=== PATIENT | female | born 1935 | race Caucasian/White ===

== ENCOUNTER 2017-12-05 13:27 | Emergency (ER) | payer MEDICARE, OTHER ==
[2017-12-05] MEDS ORDERED: Lidocaine 1% (PF) 30 ML VIAL ONE (13:45)
--- NOTE | 2017-12-05 14:07 | RAD ---
LEFT ELBOW 4 VIEWS: INDICATION: Posttraumatic left elbow pain. FINDINGS: There is no fracture or dislocation. Prominent soft tissues of the left elbow are present. No joint capsular distention. IMPRESSION: Soft tissue prominence of the left elbow. No underlying fracture or dislocation is seen. POS: [facility]
== END 2017-12-05 15:00 | disposition home or self-care (01) ==
LOC: ERS 13:27
DX: S51.012A Laceration without foreign body of left elbow, initial encounter (principal); Z87.891 Personal history of nicotine dependence; W01.0XXA Fall on same level from slipping, tripping and stumbling without subsequent striking against object, initial encounter
CPT/HCPCS: 12001; J2001

== ENCOUNTER 2020-05-04 18:29 | Emergency (ER) | payer MEDICARE, OTHER ==
[2020-05-04 19:17] LABS: #Lymphocytes 1.4 thou/uL (1.20-3.40); #Monocytes 0.8 thou/uL (0.11-0.59); #Neutrophils 3.5 thou/uL (1.40-6.50); %Basophils 0.2 % (0.0-1.0); %Eosinophils 0.8 % (0.0-10.0); %Lymphocytes 24.8 % (21.0-51.0); %Monocytes 13.4 % (0.0-10.0); %Neutrophils 60.8 % (42.0-75.0); Hemoglobin 13.8 g/dL (12.0-16.0); Mean Corpuscular HGB CONC 33.4 g/dL (32.0-36.0); Mean Corpuscular Hemoglobin 31.2 pg (27.0-31.0); Mean Corpuscular Volume 93.6 fL (78.0-98.0); Mean Platelet Volume 9.2 fL (7.4-10.4); Platelet Count 136 thou/uL (130-400); RBC Distribution Width 12.3 % (11.5-14.5); Red Blood Cell (RBC) Count 4.43 mill/uL (4.20-5.40); White Blood Cell (WBC) Count 5.8 thou/uL (4.8-10.8)
--- NOTE | 2020-05-04 19:24 | RAD ---
Exam: Chest one view HISTORY:Cough. Alzheimer's. Comparison: None FINDINGS: Cardiac silhouette: Normal Aorta: Elongated Pulmonary vessels: Normal Costophrenic angles: Clear LUNGS: No masses or consolidation. Pneumothorax: None Osseous abnormalities: None IMPRESSION: No acute cardiopulmonary process.
[2020-05-04 19:55] LABS: ALT (SGPT) 31 U/L (8-55); AST (SGOT) 41 U/L (5-34); Albumin 3.6 g/dL (3.4-4.8); Alkaline Phosphatase 76 U/L (40-110); Anion Gap 13 mmol/L (10-20); BUN (Urea Nitrogen) 18 mg/dL (9.8-20.1); Bilirubin, Total 0.7 mg/dL (0.2-1.2); Calc. Creatinine Clearance 0 mL/min (70-130); Calcium 8.7 mg/dL (7.8-10.44); Carbon Dioxide 24 mmol/L (23-31); Chloride 106 mmol/L (98-107); Globulin 3.3 g/dL (2.4-3.5); Glucose 111 mg/dL (83-110); Potassium 4.4 mmol/L (3.5-5.1); Protein, Total 6.9 g/dL (6.0-8.3); Sodium 139 mmol/L (136-145)
[2020-05-04] MEDS ORDERED: Acetaminophen 500 MG TAB ONE (20:01)
[2020-05-04 21:02] LABS: Bilirubin Negative (Negative); Blood, Urine Negative (Negative); Clarity Clear (Clear); Glucose, Urine (Dipstick) Normal (Negative); Ketone, Urine Negative (Negative); Leukocyte Negative Leu/uL (Negative); Nitrite Negative (Negative); Protein, Urine (Dipstick) Negative (Neg-Trace); Specific Gravity, Urine 1.022 (1.002-1.036); Urobilinogen 6 mg/dL (Less than 2); pH, Urine 6.5 (5.0-9.0)
[2020-05-05 06:33] LABS: SARS-CoV-2 MS2 Positive; SARS-CoV-2 N Gene Positive; SARS-CoV-2 S Gene Positive; SARS-CoV-2 by NAA DETECTED (NotDetected); SARS-CoV-2 orf1ab Positive
== END 2020-05-04 22:18 | disposition home or self-care (01) ==
LOC: ERS 18:29
DX: U07.1 COVID-19 (principal); E11.9 Type 2 diabetes mellitus without complications; E78.5 Hyperlipidemia, unspecified; I10 Essential (primary) hypertension; Z87.891 Personal history of nicotine dependence
CPT/HCPCS: 51701; 71045; 80053; 81003; 83605; 85025; 87040; 87086; 87804 ×2; 99284; U0003; 36415; 87635

== ENCOUNTER 2020-05-07 14:18 | Inpatient (IN) | payer MEDICARE, OTHER ==
[2020-05-07 15:05] LABS: #Eosinphils 0.1 thou/uL (0.0-0.7); #Monocytes 0.4 thou/uL (0.11-0.59); #Neutrophils 2.1 thou/uL (1.40-6.50); %Basophils 0.7 % (0.0-1.0); %Eosinophils 1.1 % (0.0-10.0); %Lymphocytes 43.5 % (21.0-51.0); %Neutrophils 46.7 % (42.0-75.0); Hemoglobin 13.2 g/dL (12.0-16.0); Mean Corpuscular HGB CONC 32.3 g/dL (32.0-36.0); Mean Corpuscular Volume 95.8 fL (78.0-98.0); Mean Platelet Volume 8.8 fL (7.4-10.4); Platelet Count 150 thou/uL (130-400); RBC Distribution Width 12.4 % (11.5-14.5); Red Blood Cell (RBC) Count 4.26 mill/uL (4.20-5.40); White Blood Cell (WBC) Count 4.5 thou/uL (4.8-10.8)
[2020-05-07 15:25] LABS: ALT (SGPT) 37 U/L (8-55); AST (SGOT) 49 U/L (5-34); Albumin 3.2 g/dL (3.4-4.8); Alkaline Phosphatase 67 U/L (40-110); Anion Gap 14 mmol/L (10-20); BUN (Urea Nitrogen) 17 mg/dL (9.8-20.1); Bilirubin, Total 0.3 mg/dL (0.2-1.2); Calc. Creatinine Clearance 0 mL/min (70-130); Calcium 8.2 mg/dL (7.8-10.44); Carbon Dioxide 27 mmol/L (23-31); Chloride 106 mmol/L (98-107); Globulin 3.4 g/dL (2.4-3.5); Glucose 105 mg/dL (83-110); Potassium 4.7 mmol/L (3.5-5.1); Protein, Total 6.6 g/dL (6.0-8.3); Sodium 142 mmol/L (136-145)
--- NOTE | 2020-05-07 15:34 | RAD ---
LUMBAR SPINE SERIES 3 VIEWS: HISTORY: Fall with back pain. FINDINGS: Bones are demineralized. There is scoliotic change to the spine with marked arthritic changes. Disk narrowing is most pronounced at the T12-L1, L1-2, and L2-3 levels. There are compression changes of the superior end plate of L1, age indeterminate. Pedicles appear intact. Vascular calcifications a re seen. IMPRESSION: 1. Mild age-indeterminate compression changes of the superior end plate of T12 probably on the basis of osteoporosis. 2. Marked arthritic changes of the spine. POS: [facility]
[2020-05-07] MEDS ORDERED: Acetaminophen 500 MG TAB ONE (15:36)
--- NOTE | 2020-05-07 15:37 | RAD ---
PORTABLE CHEST: HISTORY: Patient with cough and weakness. Positive COVID. COMPARISON: A 05/04/2020 exam. FINDINGS: Somewhat vague increased density in the left upper lobe region. I cannot exclude this as early infil trate, although there is fairly low suspicion. No other findings. IMPRESSION: Questionable minimal left upper lobe infiltrative change. POS: [facility]
[2020-05-07 17:33] LABS: Bacteria/HPF None Seen HPF (None Seen); Bilirubin Negative (Negative); Blood, Urine Negative (Negative); Clarity Clear (Clear); Glucose, Urine (Dipstick) Normal (Negative); Ketone, Urine Negative (Negative); Leukocyte 250 Leu/uL (Negative); Nitrite Negative (Negative); Protein, Urine (Dipstick) Negative (Neg-Trace); RBC/HPF 0-3 HPF (0-3); Specific Gravity, Urine 1.019 (1.002-1.036); Squamous Epithelial None Seen HPF (0-3)
--- NOTE | 2020-05-07 17:50 | PDOC.HHP ---
Hospitalist HPI - History of Present Illness Back pain History of Present Illness: PCP: Dr. Ibarra Majority of the H&P was taken from [facility] records and ER nursing notes secondary to the patient's history of Alzheimer's dementia. The patient is an 84-year-old female with a past medical history significant for Alzheimer's dementia that presents to the emergency department via EMS for the above compl aint. Apparently, the patient was at this hospital on 05/05 for back pain and fever. Complete work-up was performed in the ER, including Covid test. The patient was subsequently discharged home to [facility]. Today, her Covid test resulted as positive. [facility] does not have a Covid unit, therefore, they sent her to the ER for her original complaint of back pain. Per the ER notes, the patient has no shortness of breath, cough or wheezing. No fever or chills. No abdominal pain, nausea, vomiting, diarrhea. No dysuria or hematuria. No chest pain, heart palpitations or lightheadedness. Patient is basically asymptomatic. The family has already contacted Li at [facility] in [place] and the plan will be to discharge there tomorrow. EMS was called for transport to the emergency department. ED Course: VITAL SIGNS ThuMay 07, 2020 14:26 DEBBIE Ji Jt BP: 130/74, Pulse: 74, Resp: 18, Temp: 98.1 (Oral), Pain: 0, O2 sat: 95 on (Room Air), Time: 05/07/2020 14:26. VITAL SIGNS ThuMay 07, 2020 15:00 DEBBIE Parker Lacee BP: 112/76, Pulse: 68, Resp: 18, Pain: 0, O2 sat: 95 on (Room Air), Time: 05/07/2020 15:00. Medications: Acetaminophen Extra Strength 1 g Oral Given 15:48 05/07/2020 Hospitalist ROS - Review of Systems ROS unobtainable: due to mental status All other systems reviewed; all pertinent +/- noted in HPI/Subj - Medication Medications: Unable to obtain at bedside. allergies: codeine sulfate Hospitalist History - Past Medical History Source: RN notes reviewed, [facility] record SOLUTION STRATEGIST: reports: Dementia (Alzheimer's) Psych: reports: Depression - Past Surgical History Past Surgical History: reports: Appendectomy, Cholecystectomy, Hysterectomy, Other (Hernia repair) - Family History Other Family History: Noncontributory to this case. - Social History Smoking Status: Former smoker (Smokes cigars) Alcohol: reports: None Drugs: reports: none Living Situation: Skilled Nursing (Resides at [facility]) Occupation: Retired Activity level: independent ambulation - Exam General Appearance: NAD, awake alert. negative: ill appearing Eye: anicteric sclera ENT: normocephalic atraumatic Neck: supple, symmetric Heart: RRR, no murmur, no gallops, no rubs, normal peripheral pulses Respiratory: CTAB, no wheezes, no rales, no ronchi, normal chest expansion, no tachypnea Gastrointestinal: soft, non-tender, non-distended, normal bowel sounds, no b ruit, no guarding, no rigidity Extremities: no cyanosis, no edema Skin: no rashes Neurological: cranial nerve grossly intact, no focal deficits Musculoskeletal: normal tone, normal strength Psychiatric: normal affect, oriented to person (Baseline per [facility]) Hospitalist Results - Labs Result Diagrams: 05/07/20 14:51 05/07/20 14:51 Lab results: WBC 4.5 thou/uL (4.8-10.8) L 05/07/20 14:51 Hgb 13.2 g/dL (12.0-16.0) 05/07/20 14:51 Hct 40.8 % (36.0-47.0) 05/07/20 14:51 MCV 95.8 fL (78.0-98.0) 05/07/20 14:51 Plt Count 150 thou/uL (130-400) 05/07/20 14:51 Neutrophils % 46.7 % (42.0-75.0) 05/07/20 14:51 Sodium 142 mmol/L (136-145) 05/07/20 14:51 Potassium 4.7 mmol/L (3.5-5.1) 05/07/20 14:51 Chloride 106 mmol/L (98-107) 05/07/20 14:51 Carbon Dioxide 27 mmol/L (23-31) 05/07/20 14:51 BUN 17 mg/dL (9.8-20.1) 05/07/20 14:51 Creatinine 0.76 mg/dL (0.6-1.1) 05/07/20 14:51 Glucose 105 mg/dL (83-110) 05/07/20 14:51 Calcium 8.2 mg/dL (7.8-10.44) 05/07/20 14:51 Total Bilirubin 0.3 mg/dL (0.2-1.2) 05/07/20 14:51 AST 49 U/L (5-34) H 05/07/20 14:51 ALT 37 U/L (8-55) 05/07/20 14:51 Alkaline Phosphatase 67 U/L (40-110) 05/07/20 14:51 Serum Total Protein 6.6 g/dL (6.0-8.3) 05/07/20 14:51 Albumin 3.2 g/dL (3.4-4.8) L 05/07/20 14:51 Urine Ketones Negative mg/dL (Negative) 05/07/20 17:00 Urine Blood Negative (Negative) 05/07/20 17:00 Urine Nitrite Negative (Negative) 05/07/20 17:00 Ur Leukocyte Esterase 250 Anand/uL (Negative) A 05/07/20 17:00 Urine RBC 0-3 HPF (0-3) 05/07/20 17:00 Urine WBC 7-10 HPF (0-3) A 05/07/20 17:00 Ur Squamous Epith Cells None Seen HPF (0-3) 05/07/20 17:00 Urine Bacteria None Seen HPF (None Seen) 05/07/20 17:00 - EKG Interpretation EK lead EKG interpreted by Emergency Department Physician at time of study, 12 lead EKG shows normal sinus rhythm, Rate (beats per minute): 67, with unifocal premature ventricular complexes, Interpretation:, Conduction with, ST segments normal, T waves, Matthews normal, Clinical impression:, non-specific EKG, dysrhythmia - atrial - Radiology Interpretation Chest x-ray Status: report reviewed by me Additional Comment: IMPRESSION: Questionable minimal left upper lobe infiltrative change Other Status: report reviewed by me Additional Comment: XR Lumbar: IMPRESSION: 1. Mild age-indeterminate compression changes of the superior end plate of T12 probably on the basis of osteoporosis. 2. Marked arthritic changes of the spine. Hospitalist H&P A/P - Problem (1) Pneumonia due to COVID-19 virus Code(s): U07.1 - COVID-19; J12.89 - OTHER VIRAL PNEUMONIA Status: Acute (2) Alzheimer's dementia Code(s): G30.9 - ALZHEIMER'S DISEASE, UNSPECIFIED; F02.80 - DEMENTIA IN OTH DISEASES CLASSD ELSWHR W/O BEHAVRL DISTURB Status: Chronic (3) Back pain Code(s): M54.9 - DORSALGIA, UNSPECIFIED Status: Chronic - Plan Plan: 84/F with H Alzheimer's dementia presents for positive Covid test. Admit to the telemetry floor, observation status. Expected length of stay less than 2 midnights. Presented stable vital signs. EKG normal sinus rhythm, unifocal PVCs. Chest x-ray positive from mid left upper lobe infiltrate. WBC 4.5 UA 250 leukocyte Estrace, WBC 7-11 #Pneumonia due to COVID-19 virus We will cover for CAP, start azithromycin and Rocephin. Contact precautions. Check acute phase reactants in the morning. Start vitamin D, vitamin C, zinc. No indication for steroids at this time. Plan to DC patient to [facility] in [place]. Contact Li at [phone]. #Alzheimer's dementia ANO x1. Baseline per [facility] records. #Back pain Chronic. Lumbar XR as above. Lovenox for DVT prophylaxis. Pepcid for GI prophylaxis. Contact is Gaby, daughter, at [phone]. Discussed case with Dr. Vasquez.
[2020-05-07] MEDS ORDERED: Ondansetron ODT 4 MG TAB PO PRN (18:33)
[2020-05-07] MEDS ORDERED: Acetaminophen 325 MG TAB PO PRN ×2 (18:33→22:07)
[2020-05-07] MEDS ORDERED: Ondansetron PF 4 MG/2 ML Vial IVP PRN (18:33)
[2020-05-07] MEDS ORDERED: Guaifenesin DM 100-10/5 ML UDCUP PO PRN (18:33)
[2020-05-07] MEDS ORDERED: Enoxaparin Sodium 40 MG/0.4 ML SYRINGE SC SCH (18:45)
[2020-05-07] MEDS ORDERED: Azithromycin 500 MG in Sodium Chloride 0.9% 250 ML 250 ML IVPB SCH (21:00)
[2020-05-07] MEDS ORDERED: Acetaminophen 500 MG TAB PO PRN (22:22)
[2020-05-07] MEDS ORDERED: Donepezil HCl 10 MG TAB PO SCH (22:30)
[2020-05-07] MEDS ORDERED: Mirtazapine 15 MG Soltab PO SCH (22:30)
[2020-05-07] MEDS ORDERED: busPIRone HCl 5 MG TAB PO SCH (22:30)
[2020-05-07] MEDS: cefTRIAXone\\ROCEPHIN 1 GM in Sodium Chloride 0.9% 100 ML IVPB SCH (22:37)
[2020-05-07] MEDS: Famotidine 20 MG TAB PO SCH (22:38)
[2020-05-07] MEDS: Azithromycin 500 MG in Sodium Chloride 0.9% 250 ML 250 ML IVPB SCH (23:04)
[2020-05-08 05:15] LABS: #Eosinphils 0.1 thou/uL (0.0-0.7); #Lymphocytes 2.2 thou/uL (1.20-3.40); #Monocytes 0.3 thou/uL (0.11-0.59); #Neutrophils 1.9 thou/uL (1.40-6.50); %Basophils 0.8 % (0.0-1.0); %Eosinophils 1.9 % (0.0-10.0); %Lymphocytes 48.6 % (21.0-51.0); %Monocytes 7.1 % (0.0-10.0); %Neutrophils 41.6 % (42.0-75.0); Hemoglobin 13.2 g/dL (12.0-16.0); Mean Corpuscular HGB CONC 33.2 g/dL (32.0-36.0); Mean Corpuscular Hemoglobin 31.6 pg (27.0-31.0); Mean Corpuscular Volume 95.1 fL (78.0-98.0); Mean Platelet Volume 8.9 fL (7.4-10.4); Platelet Count 128 thou/uL (130-400); RBC Distribution Width 12.2 % (11.5-14.5); Red Blood Cell (RBC) Count 4.17 mill/uL (4.20-5.40); White Blood Cell (WBC) Count 4.6 thou/uL (4.8-10.8)
[2020-05-08 05:33] LABS: Anion Gap 15 mmol/L (10-20); BUN (Urea Nitrogen) 15 mg/dL (9.8-20.1); Calc. Creatinine Clearance 66 mL/min (70-130); Calcium 8.1 mg/dL (7.8-10.44); Carbon Dioxide 23 mmol/L (23-31); Chloride 108 mmol/L (98-107); Glucose 77 mg/dL (83-110); Potassium 3.9 mmol/L (3.5-5.1); Sodium 142 mmol/L (136-145)
[2020-05-08] MEDS: Ascorbic Acid 500 mg Chewable Tablet PO SCH (10:06)
[2020-05-08] MEDS: busPIRone HCl 5 MG TAB PO SCH ×3 (10:06→19:59)
[2020-05-08] MEDS: Loratadine 10 MG TAB PO SCH (10:07)
[2020-05-08] MEDS: Multivitamin W/ Minerals 1 TAB PO SCH (10:07)
[2020-05-08] MEDS: Zinc Sulfate 220 MG CAP PO SCH (10:07)
[2020-05-08] MEDS: Famotidine 20 MG TAB PO SCH ×2 (10:07→19:59)
[2020-05-08] MEDS: Cholecalciferol 1,000 UNITS (25 MCG) TAB PO SCH (10:07)
[2020-05-08 13:26] VITALS: BMI 20.9
--- NOTE | 2020-05-08 19:15 | PDOC.HOSPP ---
- Subjective Encounter Date: 05/08/20 Subjective: Patient was seen and examined in bed. - Objective Vital Signs & Weight: Vital Signs (12 hours) Temp Pulse Resp BP Pulse Ox 05/08/20 17:07 96.4 F L 72 18 136/83 95 05/08/20 14:00 98.2 F 65 18 130/82 94 L 05/08/20 10:15 97.1 F L 66 18 141/90 H 95 Weight Admit Weight 133 lb 14.4 oz Weight 133 lb 14.4 oz I&O: 05/07/20 05/08/20 05/09/20 06:59 06:59 06:59 Intake Total 590 500 Balance 590 500 Result Diagrams: 05/08/20 04:56 05/08/20 04:56 Hospitalist ROS - Medication Medications: Active Medications Generic Name Dose Route Start Last Admin Trade Name Freq PRN Reason Stop Dose Admin Ascorbic Acid 1,000 mg 05/08/20 09:00 05/08/20 10:06 Ascorbic Acid 500 Mg Chewable Tablet PO 1,000 mg DAILY LIAM Administration Buspirone HCl 5 mg 05/08/20 09:00 05/08/20 16:56 Buspirone Hcl 5 Mg Tab PO 5 mg TID LIAM Administration Cholecalciferol 5,000 units 05/08/20 09:00 05/08/20 10:07 Cholecalciferol 1,000 Units (25 Mcg) Tab PO 5,000 units DAILY LIAM Administration Famotidine 20 mg 05/07/20 21:00 05/08/20 10:07 Famotidine 20 Mg Tab PO 20 mg BID LIAM Administration Ceftriaxone Sodium 1 gm/ 100 mls @ 200 mls/hr 05/07/20 20:00 05/07/20 22:37 Sodium Chloride IVPB 100 mls Q24HR LIAM Administration Azithromycin 500 mg/ Sodium 250 mls @ 250 mls/hr 05/07/20 23:00 05/07/20 23:04 Chloride IVPB 250 mls 2300 LIAM Administration Iron/Minerals/Multivitamins 1 tab 05/08/20 09:00 05/08/20 10:07 Multivitamin W/ Minerals 1 Tab PO 1 tab DAILY LIAM Administration Loratadine 10 mg 05/08/20 09:00 05/08/20 10:07 Loratadine 10 Mg Tab PO 10 mg DAILY LIAM Administration Memantine 10 mg 05/08/20 09:00 05/08/20 10:07 Memantine Hcl 10 Mg Tab PO 10 mg BID LIAM Administration Zinc Sulfate 220 mg 05/08/20 09:00 05/08/20 10:07 Zinc Sulfate 220 Mg Cap PO 220 mg DAILY LIAM Administration - Exam General Appearance: awake alert Heart: RRR, no murmur, no gallops, no rubs Respiratory: CTAB, no wheezes, no rales, no ronchi Gastrointestinal: soft, non-tender, non-distended, normal bowel sounds Neurological: cranial nerve grossly intact, no new deficit Psychiatric: normal affect, A&O x 3 Hosp A/P - Plan 84-year-old female patient admitted on account of Covid positive test however acutely symptomatic. Positive Covid test We will keep monitoring overnight Transfer to group home facility tomorrow. Possible pneumonia On azithromycin and ceftriaxone Patient however generally symptomatic Questionable pneumonia noted on x-ray We will maintain antibiotics for now and monitor Dementia Patient is stable Continue home medications We will monitor. VT prophylaxisVT prophylaxisLovenox CODE STATUSfull code PatientCase management working on placement. Likely discharge tomorrow in the morning
[2020-05-08] MEDS: cefTRIAXone\\ROCEPHIN 1 GM in Sodium Chloride 0.9% 100 ML IVPB SCH (19:58)
[2020-05-08] MEDS ORDERED: Mirtazapine 15 MG Soltab PO SCH (21:00)
[2020-05-08] MEDS ORDERED: Donepezil HCl 10 MG TAB PO SCH (21:00)
[2020-05-08] MEDS: Azithromycin 500 MG in Sodium Chloride 0.9% 250 ML 250 ML IVPB SCH (22:03)
[2020-05-09] MEDS: Cholecalciferol 1,000 UNITS (25 MCG) TAB PO SCH (08:17)
[2020-05-09] MEDS: Famotidine 20 MG TAB PO SCH (08:18)
[2020-05-09] MEDS: Multivitamin W/ Minerals 1 TAB PO SCH (08:18)
[2020-05-09] MEDS: Loratadine 10 MG TAB PO SCH (08:18)
[2020-05-09] MEDS: Ascorbic Acid 500 mg Chewable Tablet PO SCH (08:18)
[2020-05-09] MEDS: busPIRone HCl 5 MG TAB PO SCH (08:18)
[2020-05-09] MEDS: Zinc Sulfate 220 MG CAP PO SCH (08:18)
[2020-05-09 08:39] VITALS: BP 141/84; TEMP 97.6
--- NOTE | 2020-05-09 19:02 | PDOC.HOSPP ---
- Subjective Encounter Date: 05/09/20 - Objective Vital Signs & Weight: Vital Signs (12 hours) Temp Pulse Resp BP Pulse Ox 05/09/20 08:20 97.6 F 61 18 141/84 H 93 L Weight Admit Weight 133 lb 14.4 oz Weight 133 lb 14.4 oz I&O: 05/08/20 05/09/20 05/10/20 06:59 06:59 06:59 Intake Total 590 1050 Balance 590 1050 Result Diagrams: 05/08/20 04:56 05/08/20 04:56 Hosp A/P - Plan 84-year-old female patient admitted on account of Covid positive test however acutely symptomatic. Positive Covid test We will keep monitoring overnight Transfer to [facility] facility tomorrow. Possible pneumonia On azithromycin and ceftriaxone Patient however generally symptomatic Questionable pneumonia noted on x-ray We will maintain antibiotics for now and monitor Dementia Patient is stable Continue home medications We will monitor. VT prophylaxisVT prophylaxisLovenox CODE STATUSfull code PatientCase management working on placement. Likely discharge tomorrow in the morning
--- NOTE | 2020-05-09 19:06 | PDOC.DS.DS ---
Provider - Provider Date of Admission: 05/08/20 19:39 Date of Discharge: 05/09/20 Admitting Provider: Yasmin Vasquez MD Primary Care Physician: Nilo Zamora MD Course - Hospital Course Hospital Course: This is a 84-year-old female patient with a history of Alzheimer's disease [facility] resident with a history of dementia who tested positive for Covid. Her nursing facility did not have a COVID-19 unit and therefore she was sent here for further management. Initial evaluation noted possible infiltrates concerning for pneumonia however she was entirely asymptomatic. She was admitted for possible pneumonia and started on antibiotics. Given that she remained asymptomatic antibiotics were discontinued at discharge once facility was found for her. She was stable at the time of discharge Resuscitation Status: 05/07/20 18:33 Resuscitation Status Routine Co-Sign Provider: Resuscitation Status: FULL: Full Resuscitation - Labs Lab Results: 05/08/20 04:56 05/08/20 04:56 Abnormal Lab Results - Last 48 hrs 05/08/20 04:56: Chloride 108 H 05/08/20 04:56: WBC 4.6 L, RBC 4.17 L, MCH 31.6 H, Plt Count 128 L, Neutrophils % 41.6 L 05/08/20 04:56: C-Reactive Protein 0.53 H 05/08/20 04:56: Ferritin 300.01 H 05/08/20 04:56: D-Dimer 1.37 H Microbiology - Entire Visit 05/07/20 17:00 Urine voided Urine Culture - Preliminary - Physical Exam Vitals: Vital Signs (12 hours) Temp Pulse Resp BP Pulse Ox 05/09/20 08:20 97.6 F 61 18 141/84 H 93 L Weight Admit Weight 133 lb 14.4 oz Weight 133 lb 14.4 oz Physical Exam: The patient was seen and examined on the day of discharge. General: In no acute distress. CVS: S1-S2 present and normal no murmurs gallops or rubs. Respiratory system: Air entry adequate bilaterally. No wheezes or rales. Abdomen: Benign [employer]: Alert and oriented x3 Extremities: No edema or cyanosis Problem - Discharge Plan Assessment: COVID-19 infection Asymptomatic Please contact isolation. Alzheimer's disease Continue home medications Stay Plan - Discharge Medications Home Medications: Medication Instructions Recorded Confirmed Type Acetaminophen 1,000 mg PO Q6H PRN 05/07/20 05/07/20 History Cetirizine HCl [All Day Allergy] 10 mg PO DAILY 05/07/20 05/07/20 History Donepezil HCl [Aricept] 10 mg PO HS 05/07/20 05/07/20 History Memantine HCl [Namenda] 10 mg PO BID 05/07/20 05/07/20 History Mirtazapine 15 mg PO HS 05/07/20 05/07/20 History Multivitamin With Folic Acid 400 mcg PO DAILY 05/07/20 05/07/20 History [Tab-A-Antonia Tablet] busPIRone HCl [Buspar] 5 mg PO TID 05/07/20 05/07/20 History Ascorbic Acid [Vitamin C] 1,000 mg PO DAILY tab 05/09/20 Rx Cholecalciferol [Vitamin D3] 5,000 units PO DAILY tab 05/09/20 Rx Famotidine [Pepcid] 20 mg PO BID tab 05/09/20 Rx Guaifenesin DM 100-10 [Robitussin 15 ml PO Q4H PRN ml 05/09/20 Rx DM] Ondansetron HCl/PF [Zofran] 4 mg IVP Q6H PRN vial 05/09/20 Rx Allergies: codeine Allergy (Verified 05/07/20 21:50) Penicillins Allergy (Verified 05/07/20 21:49) - Discharge Instructions Discharge Instructions:: discharge to [facility] Activity:: Activity as Tolerated Nourishment:: Heart Healthy Diet - Follow up Plan Referrals: Nilo Zamora MD [Primary Care Provider] - 7 Days Disposition: CARE HOME/ASSISTED LIVING Quality - Care Measures CORE MEASURES:: N/A
== END 2020-05-09 11:17 | DRG 179 ==
LOC: ERS 14:18 → 2SW 18:07 → OBSVTOIN 05-08 19:39
PROVIDERS: ADMIT Internal Medicine; ATTEND Internal Medicine
PROC: 8E0ZXY6 Isolation (ICD-10-PCS; principal; 2020-05-08)
DX: U07.1 COVID-19 (principal); G30.9 Alzheimer's disease, unspecified; F02.80 Dementia in other diseases classified elsewhere, unspecified severity, without behavioral disturbance, psychotic disturbance, mood disturbance, and anxiety; F32.9 Major depressive disorder, single episode, unspecified; M54.9 Dorsalgia, unspecified; G89.29 Other chronic pain; Z88.0 Allergy status to penicillin; Z90.49 Acquired absence of other specified parts of digestive tract; Z90.710 Acquired absence of both cervix and uterus; Z87.891 Personal history of nicotine dependence; Z79.899 Other long term (current) drug therapy
CPT/HCPCS: 36415; 71045; 72100; 80048; 80053; 81003; 81015; 82728; 85025; 85379; 86140; 87086; 93005; 96365; 96367; 96372; G0378; J0456; J0696; J1650; J3490; J7050